=== PATIENT | female | born 1960 ===

== ENCOUNTER 2022-11-24 11:45 | Inpatient (IN) | payer OTHER ==
[~2022-11-24] VITALS: Ht 152.4 cm; Wt 88.5 kg
[2022-11-24] MEDS ORDERED: COZAAR25 MG PO (15:38)
[2022-11-27] MEDS ORDERED: MEDROXYPRO150 MG/1 M (08:18)
== END 2022-11-28 11:10 | disposition home or self-care (01) | DRG 741 ==
LOC: O/R 11-27 04:29 → OB/GYN 11-27 04:29 → SURG 11-27 07:00 → OB/GYN 11-27 09:51 → SURG 11-27 11:45 → OB/GYN 11-28 11:10
PROVIDERS: Obstetrics & Gynecology; ADMIT Obstetrics & Gynecology Gynecologic Oncology; ATTEND Obstetrics & Gynecology Gynecologic Oncology
PROC: 0UT74ZZ Resection of Bilateral Fallopian Tubes, Percutaneous Endoscopic Approach (ICD-10-PCS; 2022-11-27)
PROC: 0UT24ZZ Resection of Bilateral Ovaries, Percutaneous Endoscopic Approach (ICD-10-PCS; 2022-11-27)
PROC: 07BC4ZZ Excision of Pelvis Lymphatic, Percutaneous Endoscopic Approach (ICD-10-PCS; 2022-11-27)
PROC: 0UT94ZZ Resection of Uterus, Percutaneous Endoscopic Approach (ICD-10-PCS; principal; 2022-11-27 07:00)
DX: C54.1 Malignant neoplasm of endometrium (principal); Z20.822 Contact with and (suspected) exposure to COVID-19